=== PATIENT | male | born 1945 | race Asian ===

== ENCOUNTER → 2021-01-17 | Outpatient (CLI) | payer OTHER ==
[~2021-01-17] MED LIST: AMLO-186 PO; CHLO50TA PO; FLUT9.9S NS; HYDR25TA PO
== END ==
LOC: LAB 09:58
PROVIDERS: ATTEND Ophthalmology
DX: Z01.812 Encounter for preprocedural laboratory examination (principal); Z20.822 Contact with and (suspected) exposure to COVID-19
CPT/HCPCS: U0003

== ENCOUNTER 2021-01-20 09:46 | Day surgery (SDC) | payer OTHER, MEDICARE ==
[~2021-01-20 09:46] MED LIST changes: +CIPROFLOXACIN 0.3% OPHTH SOLUTION 5ML BOTTLE. OS ONE; +HYDROmorphone 2 MG/ML VIAL IVP PRN; +IV RINGERS,LACTATED 1000ML 1,000 ML IV SCH; +LIDOCAINE 2% JELLY 6ML IN APPLICATOR. OS ONE; +MORPHINE SULFATE 2 MG/ML VIAL. IVP PRN; +PROCHLORPERAZINE 10 MG/2 ML VIAL. IVP PRN; +PROPARACAINE 0.5% OPHTH SOLUTION 15ML BOTTLE. OS ONE; +fentaNYL PF VIAL 100 MCG/2 ML VIAL IVP PRN
[2021-01-20] MEDS: PHENYLEPHRINE 10% OPHTH SOLUTION 5ML BOTTLE. OS SCH ×3 (10:15→10:25)
[2021-01-20] MEDS ORDERED: NEO/POLYMYX/DEXAMETH OPHTH OINTMENT 3.5GM TUBE. ONE (10:25)
[2021-01-20] MEDS ORDERED: LIDOCAINE 1%/PHENYLEPH 1.5% PF OPHTH 1 ML VIAL. ONE (10:25)
[2021-01-20] MEDS ORDERED: CHONDROITIN-SOD-HYALURONATE 0.5 ML DISP.SYRIN. ONE (10:26)
[2021-01-20] MEDS ORDERED: CHONDROIT-SOD-HYALURONATE KIT. ONE (10:26)
[2021-01-20] MEDS: CYCLOPENTOLATE 2% OPHTH SOLUTION 2ML BOTTLE. OS SCH ×3 (10:26→10:36)
[2021-01-20] MEDS ORDERED: MIDAZOLAM HCL/PF 2 MG/2 ML VIAL. ONE (12:06)
[2021-01-20 12:31] VITALS: BP 157/94
--- NOTE | 2021-01-20 12:40 | OP ---
DATE OF SURGERY: 01/20/2021 PREOPERATIVE DIAGNOSIS: Cataract of the left eye. PROCEDURE: Phacoemulsification with posterior chamber intraocular lens implantation of the left eye. INDICATION: Painless progressive visual loss and visually significant cataract. SURGEON: Alysha Peres MD ANESTHESIA: Topical with monitored anesthesia care. DESCRIPTION OF PROCEDURE: The left eye was prepped with Betadine in the usual sterile fashion and draped. A paracentesis was performed followed by instillation of preservative-free phenylephrine admixed with lidocaine and balanced salt solution. A temporal clear corneal incision was made followed by instillation of Viscoat. A capsulorrhexis was then performed followed by hydroexpression of the nucleus and Viscoat was placed both anterior and posterior to the nucleus. The phacoemulsification handpiece was used to evacuate the nucleus and the I/A handpiece used to remove the cortex. Viscoelastic was injected in the capsular bag and an [place] model [id number] with a power of 21.5 diopters was placed into the capsular bag. Balanced salt solution was used to hydrate the corneal wounds and once no leak was noted, Maxitrol was placed on the eye and the eye shielded and the patient was sent to the recovery room uneventfully. ALYSHA PERES MD DR: [email or web address] JOB#: [id number] / [id number]
== END 2021-01-20 13:00 | disposition home or self-care (01) ==
LOC: SURG 09:46 → EDUNIT# 12:30 → SURG 13:00
PROVIDERS: ATTEND Ophthalmology
DX: H25.89 Other age-related cataract (principal); Z79.899 Other long term (current) drug therapy; Z90.49 Acquired absence of other specified parts of digestive tract; Z98.890 Other specified postprocedural states
CPT/HCPCS: 66984; J0171; J0690; J1580; J2250; J3490; V2632